=== PATIENT | female | born 1980 | race Caucasian/White ===

== ENCOUNTER 2018-04-14 07:26 | Emergency (ER) | payer OTHER ==
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
[2018-04-14 08:14] LABS: ABS Basophils 0.1 10^3/ul (0-0.2); ABS Eosinophils 0.1 10^3/ul (0-0.6); ABS Lymphocytes 2.7 10^3/ul (1.0-4.8); ABS Monocytes 0.8 10^3/ul (0-0.8); ABS Neutrophils 8.7 10^3/ul (1.5-7.7); ABS Nucleated RBC 0 10^3/ul; Hematocrit 44 % (35-47); Hemoglobin 14.7 g/dl (12.0-16.0); Lymphocyte % 21.6 % (25-47); Mean Corpuscular HGB Conc 34 g/dl (31-36); Mean Corpuscular Hemoglobin 32 pg (27-31); Mean Corpuscular Volume 96 fL (80-97); Mean Platelet Volume 7.4 um3 (7.4-10.4); Nucleated Red Blood Cells % 0; Platelet Count 403 10^3/ul (150-450); Red Blood Count 4.55 10^6/ul (4.00-5.40); Red Cell Distribution Width 14 % (10.5-15); White Blood Count 12.3 10^3/ul (3.5-10.8)
[2018-04-14 08:32] LABS: EGFR Non-African American 102.6 (>60); Urine Appearance Clear; Urine Blood 1+ (Negative); Urine Color Yellow; Urine Ketones Negative (Negative); Urine Protein Negative (Negative); Urine Red Blood Cell Trace(0-2/hpf) (Absent); Urine Specific Gravity 1.021 (1.010-1.030); Urine Urobilinogen Negative (Negative); Urine White Blood Cell Absent (Absent)
--- NOTE | 2018-04-14 08:42 | RAD ---
Indication: Left forearm pain. 2 views of left forearm demonstrates no fracture or dislocation. No other bone or joint abnormality is identified. IMPRESSION: No fracture of left forearm is noted.
--- NOTE | 2018-04-14 08:44 | RAD ---
Indication: Left hand pain. 4 views of left hand demonstrates no fracture or dislocation. No other bone or joint abnormality is identified. Joint spaces all well-preserved. IMPRESSION: No fracture of the left hand is noted.
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
--- NOTE | 2018-04-14 09:07 | RAD ---
Indication: Left chest pain. 3 views of left chest and ribs demonstrates no fracture. No pneumothorax is noted. IMPRESSION: No fracture of the left ribs is noted..
[2018-04-14 13:30] VITALS: BP 94/54
== END 2018-04-14 14:28 | disposition home or self-care (01) ==
LOC: ED 07:26
DX: R07.9 Chest pain, unspecified (principal); F10.129 Alcohol abuse with intoxication, unspecified; Y92.9 Unspecified place or not applicable; F32.9 Major depressive disorder, single episode, unspecified; Z72.0 Tobacco use; R51 Headache; V47.5XXA Car driver injured in collision with fixed or stationary object in traffic accident, initial encounter
CPT/HCPCS: 36415; 70450; 70486; 80053; 80307; 80320; 80329; 81003; 81015; 84443; 85025; 99284; G0480

== ENCOUNTER 2019-03-30 23:19 | Emergency (ER) | payer SELFPAY ==
--- NOTE | 2019-03-31 00:08 | ED ---
Laceration/Wound HPI - HPI Summary HPI Summary: 38-year-old female presents with left pinky injury today. States she was mopping the floor when cut her left pinky and hit mop into face. She has a bruise to the left cheek. No headache. EOMI intact. no loss consciousness. No other injury. Tetanus up-to-date. Has no medical conditions. Is right- handed. - History of Current Complaint Stated Complaint: LEFT PINKY LACERATION PER PT Time Seen by Provider: 03/30/19 23:31 Pain Intensity: 5 - Allergy/Home Medications Allergies/Adverse Reactions: Allergies Allergy/AdvReac Type Severity Reaction Status Date / Time No Known Allergies Allergy Verified 03/30/19 23:23 Home Medications: Home Medications NK [No Home Medications Reported] 03/30/19 [History Confirmed 03/30/19] PMH/Surg Hx/FS Hx/Imm Hx Endocrine/Hematology History: Denies: Hx Diabetes Cardiovascular History: Denies: Hx Hypercholesterolemia, Hx Hypertension Psychiatric History: Reports: Hx Substance Abuse - Used cocaine and marijuana 3 months ago Denies: Hx Eating Disorder, Hx Suicide Attempt, Hx of Violent Episodes Against Others - Surgical History Surgery Procedure, Year, and Place: Has had 3 sections. Infectious Disease History: No Infectious Disease History: Denies: Traveled Outside the [place] in Last 30 Days - Family History Known Family History: Positive: None - Social History Alcohol Use: Occasionally Hx Substance Use: Yes - last used 3 months ago Substance Use Type: Reports: Cocaine, Marijuana Hx Tobacco Use: Yes Smoking Status (MU): Heavy Every Day Tobacco Smoker Review of Systems Negative: Fever Negative: Chest Pain Negative: Shortness Of Breath Positive: Other - left pinky laceration All Other Systems Reviewed And Are Negative: Yes Physical Exam Triage Information Reviewed: Yes Vital Signs On Initial Exam: Initial Vitals Temp Pulse Resp BP Pulse Ox 98.8 F 76 18 125/73 99 03/30/19 23:20 03/30/19 23:20 03/30/19 23:20 03/30/19 23:20 03/30/19 23:20 Vital Signs Reviewed: Yes Appearance: Positive: Well-Appearing Skin: Positive: Warm, Dry, Other - 1cm supeficial to left pinky on DIP Head/Face: Positive: Normal Head/Face Inspection Eyes: Positive: Normal, Conjunctiva Clear ENT: Positive: Pharynx normal Respiratory/Lung Sounds: Positive: Clear to Auscultation, Breath Sounds Present Cardiovascular: Positive: Normal, RRR Musculoskeletal: Positive: Strength/ROM Intact - left pinky, Other - capillary refill<2secs Neurological: Positive: Normal Psychiatric: Positive: Normal Procedures - Laceration/Wound Repair 1 Location: Other - left pinky finger Description: Irregular Length, Depth and Shape: 1cm superficial Irrigated w/ Saline (ccs): 200 Suture Type: Prolene Number of Sutures: 1 Sterile Dressing Applied?: Yes - telfa and metal finger splint Diagnostics - Vital Signs Vital Signs Temp Pulse Resp BP Pulse Ox 03/30/19 23:20 98.8 F 76 18 125/73 99 - Laboratory Lab Statement: Any lab studies that have been ordered have been reviewed, and results considered in the medical decision making process. Laceration Repair Course/Dx - Course Course Of Treatment: 38-year-old female presents with left pinky injury today. States she was mopping the floor when cut her left pinky and hit mop into face. She has a bruise to the left cheek. No headache. EOMI intact. no loss consciousness. No other injury. Tetanus up-to-date. Has no medical conditions. Is right-handed. On exam has 1 cm superficial lacerations to the DIP of left pinky. Patient states that she wants sutures. Place [address] metal finger splint on area. Keep clean and dry. Told to ice contusion on face. Patient understands agrees with plan. - Differential Dx Differental Diagnoses: Abrasion, Avulsion, Laceration - Clinical Impression Provider Diagnoses: Laceration of left little finger, Facial contusion Discharge - Sign-Out/Discharge Documenting (check all that apply): Patient Departure Patient Received Moderate/Deep Sedation with Procedure: No - Discharge Plan Condition: Good Disposition: HOME Patient Education Materials: Care For Your Stitches (ED) Referrals: Juan Kearney PA [Primary Care Provider] - Additional Instructions: Keep area in splint for next 3 days, change dressing once a day Keep area clean and dry for 24 hours, do not soak area Take Tylenol or ibuprofen for pain every 6 hours Return to ED or primary for suture removal in 8-10 days Return to ED if develop signs of infection such as fever, spreading redness, or pus formation - Billing Disposition and Condition Condition: GOOD Disposition: Home
[2019-03-31] MEDS ORDERED: Tetan/Diph/Pertus SYR(Tdap)* 0.5 ML SYR(BOOSTRIX) use SYR IM ONE (00:12)
[2019-03-31 00:27] VITALS: BP 139/69
== END 2019-03-31 00:20 | disposition home or self-care (01) ==
LOC: ED 23:19
DX: S61.217A Laceration without foreign body of left little finger without damage to nail, initial encounter (principal); S00.83XA Contusion of other part of head, initial encounter; W45.8XXA Other foreign body or object entering through skin, initial encounter; Y93.E5 Activity, floor mopping and cleaning; Y92.9 Unspecified place or not applicable; F17.210 Nicotine dependence, cigarettes, uncomplicated; Z87.898 Personal history of other specified conditions
CPT/HCPCS: 12001; 90471; 90715; 99282

== ENCOUNTER 2019-09-05 21:26 | Emergency (ER) | payer SELFPAY ==
[2019-09-05 21:40] VITALS: BP 130/84
[2019-09-05] MEDS ORDERED: Albuterol HFA INHALER* 8 gm MDI INH ONE (21:42)
[2019-09-05] MEDS ORDERED: Amoxicillin PO (*) 500 MG CAP PO ONE (21:42)
--- NOTE | 2019-09-05 21:46 | UC ---
Respiratory Complaint HPI - HPI Summary HPI Summary: The patient is a 36-year-old female with a greater than two-week history of cough congestion sinus pressure and pain postnasal drip as well as chest tightness and wheezing. She denies any fever or chills. She has had laryngitis for greater than a week. She denies any chest pain or shortness of breath. She has had to use an inhaler in the past. She is a smoker. She denies any recent weight loss or weight gain. - History of Current Complaint Chief Complaint: UCRespiratory Stated Complaint: COUGH Time Seen by Provider: 09/05/19 21:32 Hx Obtained From: Patient Hx Last Menstrual Period: July Onset/Duration: Gradual Onset, Lasting Weeks Timing: Constant Severity Initially: Mild Severity Currently: Moderate Pain Intensity: 3 Pain Scale Used: 0-10 Numeric Character: Cough: Productive Aggravating Factors: Nothing Alleviating Factors: Nothing Associated Signs And Symptoms: Positive: Wheezing, URI, Nasal Congestion, Hoarseness, Sinus Discomfort - Allergies/Home Medications Allergies/Adverse Reactions: Allergies Allergy/AdvReac Type Severity Reaction Status Date / Time No Known Allergies Allergy Verified 09/05/19 21:36 PMH/Surg Hx/FS Hx/Imm Hx Previously Healthy: Yes Respiratory History: Bronchitis - Surgical History Surgical History: Yes Surgery Procedure, Year, and Place: Has had 3 c sections. Tubal ligation - Family History Known Family History: Positive: Hypertension - Social History Alcohol Use: Occasionally Substance Use Type: Marijuana Smoking Status (MU): Heavy Every Day Tobacco Smoker Household Exposure Type: Cigarettes Cessation Counseling: Patient Advised to Stop Review of Systems All Other Systems Reviewed And Are Negative: Yes Constitutional: Positive: Negative Skin: Positive: Negative Eyes: Positive: Negative ENT: Positive: Ear Ache, Nasal Discharge, Sinus Congestion, Sinus Pain/ Tenderness Respiratory: Positive: Cough Cardiovascular: Positive: Negative Gastrointestinal: Positive: Negative Genitourinary: Positive: Negative Motor: Positive: Negative Neurovascular: Positive: Negative Musculoskeletal: Positive: Negative Neurological: Positive: Negative Psychological: Positive: Negative Physical Exam Triage Information Reviewed: Yes Appearance: Well-Appearing, No Pain Distress Vital Signs: Initial Vital Signs Temp 99.3 F 09/05/19 21:37 Pulse 115 09/05/19 21:37 Resp 18 09/05/19 21:37 BP 130/84 09/05/19 21:37 Pulse Ox 95 09/05/19 21:37 Vital Signs Reviewed: Yes Eyes: Positive: Conjunctiva Clear ENT: Positive: Hearing grossly normal, Pharyngeal erythema, Nasal congestion, Nasal drainage, TMs normal, Hoarse voice, Sinus tenderness, Uvula midline. Negative: Tonsillar swelling, Tonsillar exudate, Trismus, Muffled voice Dental Exam: Normal Neck: Positive: Supple, Nontender, No Lymphadenopathy Respiratory: Positive: Normal breath sounds, No respiratory distress, No accessory muscle use, Wheezing - with forced expiration/bronchospastic cough Cardiovascular: Positive: RRR, Tachycardia Musculoskeletal: Positive: ROM Intact, No Edema Neurological: Positive: Alert Psychological Exam: Normal Skin Exam: Normal Respiratory Course/Dx - Differential Dx/Diagnosis Provider Diagnosis: Acute bronchitis with bronchospasm, Laryngitis, Smoker Discharge ED - Sign-Out/Discharge Documenting (check all that apply): Patient Departure All imaging exams completed and their final reports reviewed: No Studies - Discharge Plan Condition: Stable Disposition: HOME Prescriptions: Amoxicillin PO (*) [Amoxicillin 875 MG (*)] 875 mg PO BID #14 tab predniSONE TAB* [Deltasone 20 MG TAB*] 40 mg PO DAILY #8 tab Patient Education Materials: Laryngitis (ED), Acute Bronchitis (ED), How to Use a Metered-Dose Inhaler and a Spacer (ED) Referrals: Juan Kearney PA [Primary Care Provider] - 4 Days (if not better) Additional Instructions: rest fluids mucinex or robitussin decrease or stop smoking at this time I don't think you need a chest xr however if you fail to improved in a timely fashion you need to be rechecked - Billing Disposition and Condition Condition: STABLE Disposition: Home
== END 2019-09-05 21:59 | disposition home or self-care (01) ==
LOC: UCEAST 21:26
DX: J20.9 Acute bronchitis, unspecified (principal); J04.0 Acute laryngitis; F17.210 Nicotine dependence, cigarettes, uncomplicated; H92.09 Otalgia, unspecified ear; J34.89 Other specified disorders of nose and nasal sinuses
CPT/HCPCS: 99212; A9270-GY; G0463; J7512

== ENCOUNTER 2019-12-01 15:00 | Emergency (ER) | payer SELFPAY ==
--- NOTE | 2019-12-01 15:38 | ED ---
Respiratory - HPI Summary HPI Summary: This patient is a 39-year-old female presenting to the ED with a 4 month history of cough without associated SOB. Patient states she was released from residential several months ago, developed a cough, was seen by PCP, however never had a chest x-ray. She states her PCP was to order a chest x-ray, but she never returned to PCP for follow-up. She states she feels she may have improved somewhat, however the cough has been fairly persistent. The cough worsened last night and now has some production. She also endorses some rhinorrhea. She states with the COVID happening, she became concerned. No known sick contacts. No fevers, sweats or chills. No sore throat. No headache, visual changes. She states she has been otherwise feeling well. Eating and drinking okay. Denies any shortness of breath. - History of Current Complaint Chief Complaint: EDUpperRespComplaint Stated Complaint: SOB AND COUGH Time Seen by Provider: 12/01/19 15:09 Hx Obtained From: Patient Onset/Duration: Sudden Onset Timing: Constant Initial Severity: Worse Since: - last night Current Severity: Mild Pain Intensity: 0 Character: Cough (Nonproductive) Sputum Amount: Scant Sputum Color: White Associated Signs and Symptoms: Negative - Risk Factors Status Asthmaticus Risk Factors: Negative Pulmonary Embolism Risk Factors: Negative Cardiac Risk Factors: Negative Pseudomonas Risk Factors: Negative Tuberculosis Risk Factors: Negative - Allergy/Home Medications Allergies/Adverse Reactions: Allergies Allergy/AdvReac Type Severity Reaction Status Date / Time No Known Allergies Allergy Verified 09/05/19 21:36 Home Medications: Home Medications Amoxicillin PO (*) [Amoxicillin 875 MG (*)] 875 mg PO BID #14 tab 09/05/19 [Rx] predniSONE 20 mg TAB [Deltasone 20 MG TAB*] 40 mg PO DAILY #8 tab 09/05/19 [Rx] PMH/Surg Hx/FS Hx/Imm Hx Previously Healthy: Yes Endocrine/Hematology History: Denies: Hx Diabetes Cardiovascular History: Denies: Hx Hypercholesterolemia, Hx Hypertension Psychiatric History: Reports: Hx Substance Abuse - Used cocaine and marijuana 3 months ago Denies: Hx Eating Disorder, Hx Suicide Attempt, Hx of Violent Episodes Against Others - Surgical History Surgery Procedure, Year, and Place: Has had 3 c sections. Tubal ligation - Immunization History Hx Pertussis Vaccination: No Immunizations Up to Date: Yes Infectious Disease History: No Infectious Disease History: Denies: Traveled Outside the [place] in Last 30 Days - Family History Known Family History: Positive: None, Hypertension - Social History Occupation: Unemployed Lives: Alone Alcohol Use: Occasionally Hx Substance Use: Yes - last used 3 months ago Substance Use Type: Reports: Marijuana Hx Tobacco Use: Yes Smoking Status (MU): Heavy Every Day Tobacco Smoker Review of Systems Negative: Fever, Chills, Fatigue, Skin Diaphoresis Positive: Nasal Discharge. Negative: Sore Throat Negative: Palpitations, Chest Pain Positive: Cough. Negative: Shortness Of Breath Genitourinary: Negative Positive: no symptoms reported, see HPI Negative: Arthralgia, Myalgia Negative: Rash, Bruising All Other Systems Reviewed And Are Negative: Yes Physical Exam Triage Information Reviewed: Yes Vital Signs On Initial Exam: Initial Vitals Temp Pulse Resp BP Pulse Ox 97.9 F 77 18 99/76 100 12/01/19 15:17 12/01/19 15:17 12/01/19 15:17 12/01/19 15:17 12/01/19 15:17 Vital Signs Reviewed: Yes Appearance: Positive: Well-Appearing, Well-Nourished Skin: Positive: Warm, Skin Color Reflects Adequate Perfusion Head/Face: Positive: Normal Head/Face Inspection Eyes: Positive: Normal, ANNEMARIE, Conjunctiva Clear Neck: Positive: Supple, No Lymphadenopathy Respiratory/Lung Sounds: Positive: Rhonchi - RLL Cardiovascular: Positive: RRR, Pulses are Symmetrical in both Upper and Lower Extremities Musculoskeletal: Positive: Normal, Strength/ROM Intact Neurological: Positive: Speech Normal Psychiatric: Positive: Normal, Affect/Mood Appropriate AVPU Assessment: Alert Procedures - Sedation Patient Received Moderate/Deep Sedation with Procedure: No Diagnostics - Vital Signs Vital Signs Temp Pulse Resp BP Pulse Ox 12/01/19 15:17 97.9 F 77 18 99/76 100 - Laboratory Lab Statement: Any lab studies that have been ordered have been reviewed, and results considered in the medical decision making process. Disposition - Course Course Of Treatment: PATIENT IS NOT BEING TESTED AT THIS TIME FOR COVID. DOES NOT MEET CRITERIA. Patient is evaluated for cough 4 months which worsened last evening. She has been denying any fevers, sweats, chills. States she feels otherwise okay. Some rhinorrhea this morning. Denies any shortness of breath. Patient was to obtain an x-ray through her PCP several months ago, however never returned. She states her cough has been present since being discharged from residential. She denies any drug use, history of alcohol abuse. No cervical LAD bilaterally. No conjunctival injection. EOMI/PERRLA. No pharyngeal erythema or tonsillar exudates. Lungs with some rhonchorous sounds the right lower lung base, RRR. Afebrile. Vital signs stable. Chest x-ray obtained: no acute cardiopulmonary findings. Read by NEVAEH Pina. Discussed with patient for any worsening symptoms follow up with PCP via telehealth or able to get testing for COVID if meeting criteria at that time. - Differential Dx - Cardiopulmonary Differential Diagnoses - Cardiopulmonary: Other - cough, congestion, smokers cough, copd - Diagnoses Provider Diagnoses: Cough Is Visit Related: No Discharge ED - Sign-Out/Discharge Documenting (check all that apply): Patient Departure - Discharge Plan Condition: Stable Disposition: HOME Referrals: Juan Kearney PA [Primary Care Provider] - Additional Instructions: As discussed, if you develop any worsening symptoms, please return to the ED If you develop cough with a fever and/or sore throat or any shortness of breath -you may consider obtaining a test for covid please continue to self-isolate during this time to avoid getting or spreading the virus. It was a pleasure taking care of you today - Billing Disposition and Condition Condition: STABLE Disposition: Home
[2019-12-01 16:14] VITALS: BP 103/77
== END 2019-12-01 16:12 | disposition home or self-care (01) ==
LOC: ED 15:00
DX: R05 Cough (principal); F17.210 Nicotine dependence, cigarettes, uncomplicated
CPT/HCPCS: 71046; 99282